=== PATIENT | male | born 1990 | race Caucasian/White ===

== ENCOUNTER 2025-04-24 15:26 | Inpatient (IN) | payer SELFPAY ==
[2025-04-24] VITALS (14 sets, daily range): BP systolic 137–180; BP diastolic 73–107; PULSE 105–126; RESP 20–38; TEMP 98.1–98.5; O2SAT 92–97
[~2025-04-24] VITALS: Ht 172.7 cm; Wt 86.9 kg
[2025-04-24 16:34] LABS: BASOPHIL # 0.0 10^3/uL (0.0-0.1); BASOPHIL % 0.4 % (0.2-1.2); EOSINOPHIL # 0.0 10^3/uL (0.0-0.2); EOSINOPHIL % 0.1 % (0.0-5.0); HEMATOCRIT(ML) 39.6 % (37.0-53.0); IG % 0.20 % (0.00-0.50); LYMPHOCYTES # 0.64 10^3/uL1 (1.0-4.8); LYMPHOCYTES % 8.0 % (24.0-44.0); MEAN CORP HGB 36.3 pg (26-34); MEAN CORP HGB CONCENTRATION 34.6 g/dL (33-36.5); MEAN CORP VOLUME 105.0 fL (78-100); MONOCYTES # 0.4 10^3/uL (0.3-0.8); MONOCYTES % 5.2 % (5.0-12.0); NEUTROPHIL # 6.9 10^3/uL (1.8-7.7); NEUTROPHILS % 86.1 % (41.0-85.0); RED BLOOD CELL 3.77 10^6/uL (4.50-5.90); RED CELL DISTRIBUTION WIDTH 15.8 % (11.5-14.5); WHITE BLOOD CELL 8.0 10^3/uL (4.5-11.0)
[2025-04-24] MEDS ORDERED: NS 1000ML 1,000 ML ONE ×2 (16:37→23:20)
[2025-04-24] MEDS ORDERED: ATIVAN ONE (16:38)
[2025-04-24] MEDS: ATIVAN IV STA (16:45)
[2025-04-24] MEDS: NS 1000ML 1,000 ML STA ×2 (16:45→17:07)
[2025-04-24 16:53] LABS: INR 1.2; PROTHROMBIN PROTIME 12.1 SEC (9.3-11.6)
[2025-04-24 16:56] LABS: ALANINE AMINOTRANSFERASE(ML) 203.0 U/L (12-78); ALBUMIN(ML) 3.9 g/dL (3.4-5.0); CREATININE SERUM 1.01 mg/dL (0.59-1.40); EST GFR, NON-AA 85.6 (>/=60); TROPONIN I HIGH SENSITIVITY 28.0 ng/L (0-75)
[2025-04-24] MEDS: NS 1000ML 1,000 ML IV STA (16:58)
[2025-04-24] MEDS ORDERED: VERSED ONE ×2 (17:01→18:18)
[2025-04-24] MEDS: VERSED IV STA ×2 (17:06→18:30)
[2025-04-24] MEDS ORDERED: VALIUM ONE (17:35)
[2025-04-24] MEDS: VALIUM IV STA ×2 (17:39→19:03)
[2025-04-24] MEDS: PRECEDEX IV STA (21:07)
[2025-04-24] MEDS: INFUVITE ADULT IV SCH (22:00)
[2025-04-24] MEDS ORDERED: MOTRIN PO PRN (22:00)
[2025-04-24] MEDS: NS IV SCH (22:00)
[2025-04-24] MEDS: THIAMINE HCL IV SCH (22:00)
[2025-04-24] MEDS ORDERED: INFUVITE ADULT IV ONE (23:21)
[2025-04-24] MEDS ORDERED: THIAMINE HCL ONE (23:23)
[2025-04-25] VITALS (97 sets, daily range): BP systolic 101–199; BP diastolic 47–123; PULSE 76–137; RESP 14–101; TEMP 97.2–98.2; O2SAT 89–99
[2025-04-25] MEDS: PRECEDEX IV SCH (00:16)
[2025-04-25] MEDS: CATAPRES PO SCH ×2 (01:40→23:17)
[2025-04-25] MEDS: PHENERGAN PO PRN (01:40)
[2025-04-25] MEDS: ATIVAN IV ONE ×2 (01:45→01:47)
[2025-04-25 04:24] LABS: BASOPHIL # 0.0 10^3/uL (0.0-0.1); BASOPHIL % 0.6 % (0.2-1.2); EOSINOPHIL # 0.0 10^3/uL (0.0-0.2); EOSINOPHIL % 0.6 % (0.0-5.0); HEMATOCRIT(ML) 35.2 % (37.0-53.0); IG % 0.80 % (0.00-0.50); LYMPHOCYTES # 0.82 10^3/uL1 (1.0-4.8); LYMPHOCYTES % 16.2 % (24.0-44.0); MEAN CORP HGB 36.0 pg (26-34); MEAN CORP HGB CONCENTRATION 34.4 g/dL (33-36.5); MEAN CORP VOLUME 104.8 fL (78-100); MONOCYTES # 0.2 10^3/uL (0.3-0.8); MONOCYTES % 4.8 % (5.0-12.0); NEUTROPHIL # 3.9 10^3/uL (1.8-7.7); NEUTROPHILS % 77.0 % (41.0-85.0); RED BLOOD CELL 3.36 10^6/uL (4.50-5.90); RED CELL DISTRIBUTION WIDTH 15.9 % (11.5-14.5); WHITE BLOOD CELL 5.1 10^3/uL (4.5-11.0)
[2025-04-25 04:35] LABS: ALANINE AMINOTRANSFERASE(ML) 153.0 U/L (12-78); ALBUMIN(ML) 3.1 g/dL (3.4-5.0); CREATININE SERUM 0.7 mg/dL (0.59-1.40); EST GFR, NON-AA 130.7 (>/=60)
[2025-04-25] MEDS: KLOR-CON PO SCH (05:38)
[2025-04-25] MEDS ORDERED: THIAMINE HCL ONE ×2 (07:15→07:21)
[2025-04-25] MEDS ORDERED: NS 1000ML 1,000 ML ONE (07:16)
[2025-04-25] MEDS ORDERED: INFUVITE ADULT IV ONE (07:16)
[2025-04-25] MEDS ORDERED: MAGNESIUM 2 GRAM/50ML 50 ML IV ONE (07:33)
[2025-04-25] MEDS ORDERED: PROTONIX PO ONE (07:34)
[2025-04-25] MEDS: MAGNESIUM 2 GRAM/50ML 50 ML IV ONE (07:39)
[2025-04-25] MEDS: PROTONIX PO SCH (07:39)
[2025-04-25 09:23] LABS: LEUKOCYTE ESTERASE ,URINE NEGATIVE (NEGATIVE); NITRATE,URINE NEGATIVE (NEGATIVE)
[2025-04-25 09:45] LABS: APPEARANCE,URINE CLEAR; UA COLOR YELLOW
[2025-04-25 11:17] LABS: CREATININE SERUM 0.91 mg/dL (0.59-1.40); EST GFR, NON-AA 96.6 (>/=60)
[2025-04-25] MEDS: LIBRIUM PO SCH ×3 (11:36→23:57)
[2025-04-25] MEDS ORDERED: ONDA-228 PO (13:14)
[2025-04-25] MEDS ORDERED: GABA100C7 PO (13:22)
[2025-04-25] MEDS ORDERED: TEMA15CA6 PO (13:24)
[2025-04-25] MEDS ORDERED: QUET25TA5 PO (13:29)
[2025-04-25] MEDS ORDERED: CHLO1CAP PO (13:29)
[2025-04-25] MEDS ORDERED: FLUO20TA25 PO (13:33)
[2025-04-25] MEDS: ATIVAN IV PRN (13:47)
[2025-04-25] MEDS: NS 1000ML 1,000 ML IV ONE (16:29)
[2025-04-25] MEDS: KLOR-CON PO ONE (16:30)
[2025-04-25] MEDS: OFIRMEV 100 ML IV PRN (16:52)
[2025-04-25] MEDS: CHLORTHALIDONE PO STA (17:57)
[2025-04-25] MEDS: COZAAR PO STA (17:57)
[2025-04-25] MEDS: LOPRESSER PO STA (17:59)
[2025-04-25] MEDS: NS 1000ML 1,000 ML IV SCH (19:00)
[2025-04-25] MEDS ORDERED: SEROQUEL ONE (19:59)
[2025-04-25] MEDS ORDERED: NEURONTIN ONE (19:59)
[2025-04-25] MEDS ORDERED: RESTORIL PO ONE (19:59)
[2025-04-25] MEDS: SEROQUEL PO SCH (20:13)
[2025-04-25] MEDS: NEURONTIN PO SCH (20:13)
[2025-04-25] MEDS: RESTORIL PO SCH (20:13)
[2025-04-25] MEDS: APRESOLINE IV PRN (20:15)
[2025-04-25] MEDS ORDERED: CATAPRES PO SCH (23:00)
[2025-04-25] MEDS ORDERED: CATAPRES ONE (23:02)
[2025-04-26] VITALS (86 sets, daily range): BP systolic 94–203; BP diastolic 38–113; PULSE 76–109; RESP 10–59; TEMP 97.8–98.9; O2SAT 91–99
[2025-04-26 05:03] LABS: CREATININE SERUM 0.76 mg/dL (0.59-1.40); EST GFR, NON-AA 118.9 (>/=60)
[2025-04-26] MEDS ORDERED: CATAPRES ONE (08:31)
[2025-04-26] MEDS: CHLORTHALIDONE PO SCH (08:59)
[2025-04-26] MEDS: TOPROL-XL PO SCH (09:00)
[2025-04-26] MEDS: PROZAC PO SCH (09:00)
[2025-04-26] MEDS: KLOR-CON PO SCH (09:00)
[2025-04-26] MEDS: COZAAR PO SCH (09:05)
[2025-04-27] VITALS (44 sets, daily range): BP systolic 95–165; BP diastolic 47–112; PULSE 67–100; RESP 8–33; TEMP 97.1–98.3; O2SAT 93–100
[2025-04-27 05:22] LABS: HEMATOCRIT(ML) 41.2 % (37.0-53.0); MEAN CORP HGB 37.1 pg (26-34); MEAN CORP HGB CONCENTRATION 34.7 g/dL (33-36.5); MEAN CORP VOLUME 107.0 fL (78-100); RED BLOOD CELL 3.85 10^6/uL (4.50-5.90); RED CELL DISTRIBUTION WIDTH 15.5 % (11.5-14.5); WHITE BLOOD CELL 4.5 10^3/uL (4.5-11.0)
[2025-04-27 05:34] LABS: CREATININE SERUM 0.86 mg/dL (0.59-1.40); EST GFR, NON-AA 103.1 (>/=60)
[2025-04-27] MEDS: MAGNESIUM 2 GRAM/50ML 50 ML IV ONE (07:56)
[2025-04-27] MEDS: KLOR-CON PO SCH (07:58)
[2025-04-27] MEDS ORDERED: LOSA-400 PO (11:43)
[2025-04-27] MEDS ORDERED: CHLO1CAP PO (11:43)
[2025-04-27] MEDS ORDERED: PANT40TA6 PO (11:43)
[2025-04-27] MEDS ORDERED: METO-236 PO (11:43)
[2025-04-27] MEDS: CATAPRES PO SCH (11:49)
== END 2025-04-27 19:12 | disposition home or self-care (01) | DRG 433 ==
LOC: ER 15:26 → ICU 19:16
PROVIDERS: ADMIT Internal Medicine; ATTEND Student in an Organized Health Care Education/Training Program
DX: K70.9 Alcoholic liver disease, unspecified (principal); F10.139 Alcohol abuse with withdrawal, unspecified; F17.210 Nicotine dependence, cigarettes, uncomplicated; I10 Essential (primary) hypertension; R00.0 Tachycardia, unspecified; R73.9 Hyperglycemia, unspecified
CPT/HCPCS: 36415; 71045; 80048; 80053; 81001; 82607; 82746; 83036; 83735; 83880; 84484; 85025; 85027; 85379; 85610; 85730; 93005; 96361; 96374; 96375; 99291; 99292; G0378; J0131; J0360; J2060; J2250; J3360; J3411; J3475; J3490; J7030